=== PATIENT | male | born 1980 | race Caucasian/White ===

== ENCOUNTER 2020-12-01 21:25 | Emergency (ER) | payer SELFPAY ==
[~2020-12-01] VITALS: Ht 190.5 cm; Wt 108.9 kg
[2020-12-01] MEDS ORDERED: AMOXICILLIN875 MG PO (22:33)
== END 2020-12-01 22:46 | disposition home or self-care (01) ==
LOC: ED 21:25
DX: K08.89 Other specified disorders of teeth and supporting structures (principal)

== ENCOUNTER 2020-12-29 13:17 | Emergency (ER) | payer MEDICAID ==
[~2020-12-29] VITALS: Ht 190.5 cm; Wt 112.0 kg
[~2020-12-29 13:17] MED LIST: AMOXICILLIN875 MG PO
[2020-12-29] MEDS ORDERED: DEPAKOTE500 M1 PO (14:00)
[2020-12-29 14:21] LABS: BASO # 0.1 10*3/uL (0.0-0.1); BASO % 1.1 % (0.0-1.0); EOS # 0.3 10*3/uL (0.0-0.4); LYMPH # 2.4 10*3/uL (1.3-4.4); MEAN CELL VOLUME 86.8 fl (80.0-94.0); MEAN CORPUSCULAR HGB 29.2 pg (27.0-31.0); MEAN CORPUSCULAR HGB CONC 33.7 g/dl (33.0-37.0); MEAN PLATELET VOLUME 9.8 fl (9.6-12.3); MONO # 0.7 10*3/uL (0.1-1.0); MONO % 10.7 % (3.0-9.0); NEUT # 3.1 10*3/uL (2.3-7.9); PLATELET COUNT AUTOMATED 277 10*3/uL (130-400); RED CELL DISTRI WIDTH 12.1 % (0-14.5); WHITE BLOOD COUNT 6.6 10*3/uL (4.8-10.8)
[2020-12-29 14:38] LABS: ALBUMIN 3.9 gm/dl (3.1-4.5); ALKALINE PHOSPHATASE 87 U/L (45-117); BUN 7 mg/dl (7-24); CHLORIDE 110 mmol/L (98-107); CREATININE 1.02 mg/dL (0.70-1.30); SGOT/AST 20 IU/L (3-35); SGPT/ALT 55 U/L (12-78); SODIUM 140 mmol/L (136-145); TOTAL PROTEIN 7.9 gm/dL (6.4-8.2)
== END 2020-12-29 15:01 | disposition home or self-care (01) ==
LOC: ED 13:17
PROVIDERS: Emergency Medicine
DX: G40.909 Epilepsy, unspecified, not intractable, without status epilepticus (principal); Z88.8 Allergy status to other drugs, medicaments and biological substances

== ENCOUNTER → 2021-05-01 | Outpatient (CLI) | payer OTHER ==
[~2021-05-01] MED LIST changes: +DEPAKOTE500 M1 PO
[2021-05-01 15:19] LABS: BASO # 0.1 10*3/uL (0.0-0.1); BASO % 0.9 % (0.0-1.0); EOS # 0.3 10*3/uL (0.0-0.4); EOS % 4.4 % (1.0-4.0); HEMATOCRIT 47.2 % (42.0-52.0); LYMPH # 2.7 10*3/uL (1.3-4.4); MEAN CELL VOLUME 85.4 fl (80.0-94.0); MEAN CORPUSCULAR HGB 28.6 pg (27.0-31.0); MEAN CORPUSCULAR HGB CONC 33.5 g/dl (33.0-37.0); MEAN PLATELET VOLUME 9.7 fl (9.6-12.3); MONO # 0.7 10*3/uL (0.1-1.0); MONO % 10.2 % (3.0-9.0); NEUT % 44.2 % (47.0-73.0); PLATELET COUNT AUTOMATED 296 10*3/uL (130-400); RED BLOOD COUNT 5.53 10*6/uL (4.50-5.90); RED CELL DISTRI WIDTH 12.7 % (0-14.5); WHITE BLOOD COUNT 6.8 10*3/uL (4.8-10.8)
[2021-05-01 16:00] LABS: CHLORIDE 108 mmol/L (98-107); CREATININE 0.94 mg/dL (0.70-1.30); POTASSIUM 4.1 mmol/L (3.5-5.1); SODIUM 138 mmol/L (136-145)
[2021-05-01 16:11] LABS: ALKALINE PHOSPHATASE 82 U/L (45-117); BUN 11 mg/dl (7-24); CHOLESTEROL 189 mg/dL (<200); FREE T4 0.93 ng/dl (0.76-1.46); LDL CHOLESTEROL 117 mg/dL (9-159); SGOT/AST 23 IU/L (3-35); SGPT/ALT 60 U/L (12-78); TOTAL PROTEIN 8.3 gm/dL (6.4-8.2); TRIGLYCERIDES 192 mg/dl (<150)
[2021-05-01 20:48] LABS: VITAMIN D, 25-HYDROXY 13.1 ng/mL (30-100)
== END | disposition home or self-care (01) ==
LOC: LAB 14:36
PROVIDERS: ATTEND Internal Medicine
DX: I10 Essential (primary) hypertension (principal); E55.9 Vitamin D deficiency, unspecified; Z13.1 Encounter for screening for diabetes mellitus; Z13.220 Encounter for screening for lipoid disorders; Z00.00 Encounter for general adult medical examination without abnormal findings

== ENCOUNTER 2021-05-07 17:26 | Emergency (ER) | payer OTHER ==
[~2021-05-07] VITALS: Ht 190.5 cm; Wt 110.7 kg
[2021-05-07] MEDS ORDERED: MEDROL DOSEPAK4 MG PO (18:40)
[2021-05-07] MEDS ORDERED: ZYRTEC10 M2 PO (18:40)
[2021-05-07] MEDS ORDERED: CYCLOBENZAPRINE5 M3 PO (18:40)
== END 2021-05-07 18:58 | disposition home or self-care (01) ==
LOC: ED 17:26
DX: M54.9 Dorsalgia, unspecified (principal); H93.8X3 Other specified disorders of ear, bilateral; Z88.8 Allergy status to other drugs, medicaments and biological substances; F17.200 Nicotine dependence, unspecified, uncomplicated

== ENCOUNTER 2021-07-05 17:44 | Emergency (ER) | payer OTHER ==
[~2021-07-05] VITALS: Ht 190.5 cm; Wt 111.1 kg
[~2021-07-05 17:44] MED LIST changes: +CYCLOBENZAPRINE5 M3 PO; +MEDROL DOSEPAK4 MG PO; +ZYRTEC10 M2 PO
[2021-07-05] MEDS ORDERED: CEFUROXIME AXE500 MG PO (18:02)
[2021-07-05] MEDS ORDERED: DOXYCYCLINE HY100 M3 PO (18:02)
== END 2021-07-05 18:12 | disposition home or self-care (01) ==
LOC: ED 17:44
DX: L03.113 Cellulitis of right upper limb (principal); Z88.1 Allergy status to other antibiotic agents; Z88.8 Allergy status to other drugs, medicaments and biological substances; F17.200 Nicotine dependence, unspecified, uncomplicated

== ENCOUNTER → 2021-10-11 | Outpatient (CLI) | payer OTHER ==
[~2021-10-11] MED LIST changes: +CEFUROXIME AXE500 MG PO; +DOXYCYCLINE HY100 M3 PO
[2021-10-12 05:06] LABS: TOTAL PROTEIN, SERUM 7.7 g/dL (6.0-8.5)
[2021-10-14 15:06] LABS: ALBUMIN 3.9 g/dL (2.9-4.4); ALPHA-1-GLOBULIN 0.2 g/dL (0.0-0.4); ALPHA-2-GLOBULIN 0.9 g/dL (0.4-1.0); BETA GLOBULIN 1.2 g/dL (0.7-1.3); GAMMA GLOBULIN 1.4 g/dL (0.4-1.8); GLOBULIN, TOTAL 3.8 g/dL (2.2-3.9); M-SPIKE Not Observed g/dL (Not Observed)
[2021-10-15 13:06] LABS: ALBUMIN, URINE 34.5 % (.); ALPHA-1-GLOBULIN, URINE 3.9 % (.); ALPHA-2-GLOBULIN, URINE 23.2 % (.); BETA GLOBULIN, URINE 27.9 % (.); GAMMA GLOBULIN, URINE 10.5 % (.); M-SPIKE, % Not Observed % (Not Observed); PROTEIN,TOTAL - URINE RANDOM 18.7 mg/dL (Not Estab.)
== END | disposition home or self-care (01) ==
LOC: LAB 13:46
PROVIDERS: ATTEND Internal Medicine
DX: R79.82 Elevated C-reactive protein (CRP) (principal)

== ENCOUNTER 2021-10-30 00:05 | Emergency (ER) | payer OTHER ==
[~2021-10-30] VITALS: Ht 182.8 cm; Wt 99.8 kg
[2021-10-30 00:27] LABS: BASO # 0.1 10*3/uL (0.0-0.1); BASO % 0.8 % (0.0-1.0); EOS # 0.4 10*3/uL (0.0-0.4); EOS % 3.2 % (1.0-4.0); HEMATOCRIT 47.3 % (42.0-52.0); LYMPH % 43.7 % (27.0-41.0); MEAN CELL VOLUME 86.3 fl (80.0-94.0); MEAN CORPUSCULAR HGB 28.6 pg (27.0-31.0); MEAN CORPUSCULAR HGB CONC 33.2 g/dl (33.0-37.0); MEAN PLATELET VOLUME 9.8 fl (9.6-12.3); MONO # 1.1 10*3/uL (0.1-1.0); MONO % 9.4 % (3.0-9.0); NEUT # 4.8 10*3/uL (2.3-7.9); NEUT % 42.5 % (47.0-73.0); PLATELET COUNT AUTOMATED 325 10*3/uL (130-400); RED BLOOD COUNT 5.48 10*6/uL (4.50-5.90); RED CELL DISTRI WIDTH 12.3 % (0-14.5); WHITE BLOOD COUNT 11.4 10*3/uL (4.8-10.8)
[2021-10-30 00:41] LABS: ALKALINE PHOSPHATASE 82 U/L (45-117); BUN 10 mg/dl (7-24); CHLORIDE 109 mmol/L (98-107); CREATININE 1.34 mg/dL (0.70-1.30); POTASSIUM 3.9 mmol/L (3.5-5.1); SGOT/AST 22 IU/L (3-35); SGPT/ALT 45 U/L (12-78); SODIUM 140 mmol/L (136-145); TOTAL PROTEIN 7.7 gm/dL (6.4-8.2)
== END 2021-10-30 02:45 | disposition home or self-care (01) ==
LOC: ED 00:05
PROVIDERS: Emergency Medicine
DX: S00.512A Abrasion of oral cavity, initial encounter (principal); G40.909 Epilepsy, unspecified, not intractable, without status epilepticus; M62.838 Other muscle spasm; Z79.899 Other long term (current) drug therapy; Z88.1 Allergy status to other antibiotic agents; W01.198A Fall on same level from slipping, tripping and stumbling with subsequent striking against other object, initial encounter; Y93.01 Activity, walking, marching and hiking; Y92.89 Other specified places as the place of occurrence of the external cause; Y99.9 Unspecified external cause status

== ENCOUNTER → 2021-11-21 | Outpatient (CLI) | payer OTHER | END | disposition home or self-care (01) | LOC: LAB 14:57 | PROVIDERS: ATTEND Internal Medicine | DX: Z13.220 Encounter for screening for lipoid disorders (principal); Z13.1 Encounter for screening for diabetes mellitus; Z13.21 Encounter for screening for nutritional disorder; Z13.228 Encounter for screening for other metabolic disorders; Z13.29 Encounter for screening for other suspected endocrine disorder; Z13.89 Encounter for screening for other disorder; Z13.9 Encounter for screening, unspecified; R79.89 Other specified abnormal findings of blood chemistry ==

== ENCOUNTER 2022-01-31 12:36 | Emergency (ER) | payer OTHER ==
[~2022-01-31] VITALS: Ht 190.5 cm; Wt 102.1 kg
[2022-01-31] MEDS ORDERED: CLEOCIN HCL300 MG PO (13:10)
== END 2022-01-31 13:24 | disposition home or self-care (01) ==
LOC: ED 12:36
DX: J32.9 Chronic sinusitis, unspecified (principal); L73.9 Follicular disorder, unspecified; F17.200 Nicotine dependence, unspecified, uncomplicated; Z88.1 Allergy status to other antibiotic agents; Z88.8 Allergy status to other drugs, medicaments and biological substances

== ENCOUNTER 2022-02-19 07:38 | Emergency (ER) | payer OTHER ==
[~2022-02-19] VITALS: Ht 190.5 cm; Wt 108.0 kg
[~2022-02-19 07:38] MED LIST changes: +CLEOCIN HCL300 MG PO
[2022-02-19 08:26] LABS: HEMATOCRIT 46.8 % (42.0-52.0); MEAN CELL VOLUME 84.6 fl (80.0-94.0); MEAN CORPUSCULAR HGB 29.3 pg (27.0-31.0); MEAN CORPUSCULAR HGB CONC 34.6 g/dl (33.0-37.0); MEAN PLATELET VOLUME 9.7 fl (9.6-12.3); PLATELET COUNT AUTOMATED 297 10*3/uL (130-400); RED BLOOD COUNT 5.53 10*6/uL (4.50-5.90); RED CELL DISTRI WIDTH 12.6 % (0-14.5); WHITE BLOOD COUNT 10.2 10*3/uL (4.8-10.8)
[2022-02-19 08:28] LABS: MANUAL DIFF REFLEX YES
[2022-02-19 08:41] LABS: ALKALINE PHOSPHATASE 78 U/L (46-116); BUN 10 mg/dl (9-23); CHLORIDE 105 mmol/L (98-107); CREATININE 0.98 mg/dL (0.70-1.30); LIPASE 41 U/L (12-53); POTASSIUM 4.1 mmol/L (3.4-5.1); SGPT/ALT 31 U/L (10-49); SODIUM 139 mmol/L (136-145); TOTAL PROTEIN 7.5 gm/dL (6.0-8.0)
[2022-02-19 08:47] LABS: ATYPICAL LYMPHS 1 % (0-0); PLATELET SUFFICIENCY NORMAL (NORMAL); POLYCHROMASIA SLIGHT; TOTAL CELLS COUNTED 100 #CELLS
[2022-02-19] MEDS ORDERED: CYCLOBENZAPRINE10 MG PO (10:26)
== END 2022-02-19 10:35 | disposition home or self-care (01) ==
LOC: ED 07:38
PROVIDERS: Emergency Medicine
DX: M54.50 Low back pain, unspecified (principal); R10.31 Right lower quadrant pain; R11.0 Nausea; R00.2 Palpitations; Z88.1 Allergy status to other antibiotic agents; Z88.8 Allergy status to other drugs, medicaments and biological substances; F17.200 Nicotine dependence, unspecified, uncomplicated

== ENCOUNTER 2022-03-18 15:59 | Emergency (ER) | payer OTHER ==
[~2022-03-18] VITALS: Ht 190.5 cm; Wt 108.0 kg
[~2022-03-18 15:59] MED LIST changes: +CYCLOBENZAPRINE10 MG PO
[2022-03-18 17:19] LABS: BILIRUBIN Negative (Negative); BLOOD Negative (Negative); CLARITY Clear (Clear); COLOR Yellow (Yellow); GLUCOSE Negative (Negative); KETONE Trace (Negative); LEUKO ESTERASE Negative (Negative); NITRITE Negative (Negative); PH 5.5 (4.5-8.0); SPECIFIC GRAVITY 1.025 (1.001-1.030)
[2022-03-18 17:32] LABS: MUCOUS 1+; RBC 0-2 rbc/hpf (0-2)
[2022-03-18 17:42] LABS: URINE AMPHETAMINES Negative (1000ng/ml); URINE BARBITURATES Negative (200ng/ml); URINE BENZODIAZEPINES Negative (200ng/ml); URINE CANNABINOIDS (THC) Negative (50ng/ml); URINE COCAINE Negative (300ng/ml); URINE METHADONE Negative (300ng/ml); URINE OPIATES Negative (300ng/ml); URINE PHENCYCLIDINE Negative (25ng/ml)
[2022-03-18 17:57] LABS: FINE GRANULAR CAST 0-2
[2022-03-18] MEDS ORDERED: Motrin,Rufen800 MG PO (18:01)
[2022-03-18] MEDS ORDERED: MEDROL DOSEPAK4 MG PO (18:01)
== END 2022-03-18 18:29 | disposition home or self-care (01) ==
LOC: ED 15:59
PROVIDERS: Nurse Practitioner
DX: S39.012A Strain of muscle, fascia and tendon of lower back, initial encounter (principal); Z88.1 Allergy status to other antibiotic agents; F10.90 Alcohol use, unspecified, uncomplicated; Z88.8 Allergy status to other drugs, medicaments and biological substances; Z79.899 Other long term (current) drug therapy; X58.XXXA Exposure to other specified factors, initial encounter; Y93.89 Activity, other specified; Y92.89 Other specified places as the place of occurrence of the external cause; Y99.8 Other external cause status

== ENCOUNTER 2022-04-19 14:54 | Emergency (ER) | payer OTHER ==
[~2022-04-19] VITALS: Ht 190.5 cm; Wt 107.5 kg
[~2022-04-19 14:54] MED LIST changes: +Motrin,Rufen800 MG PO
[2022-04-19 15:33] LABS: BASO # 0.1 10*3/uL (0.0-0.1); BASO % 0.9 % (0.0-1.0); EOS # 0.3 10*3/uL (0.0-0.4); EOS % 4.6 % (1.0-4.0); HEMATOCRIT 47.5 % (42.0-52.0); LYMPH # 3.2 10*3/uL (1.3-4.4); LYMPH % 46.2 % (27.0-41.0); MEAN CELL VOLUME 83.8 fl (80.0-94.0); MEAN CORPUSCULAR HGB 29.6 pg (27.0-31.0); MEAN CORPUSCULAR HGB CONC 35.4 g/dl (33.0-37.0); MEAN PLATELET VOLUME 10.3 fl (9.6-12.3); MONO # 0.7 10*3/uL (0.1-1.0); MONO % 10.7 % (3.0-9.0); NEUT # 2.6 10*3/uL (2.3-7.9); NEUT % 37.3 % (47.0-73.0); PLATELET COUNT AUTOMATED 272 10*3/uL (130-400); RED BLOOD COUNT 5.67 10*6/uL (4.50-5.90); RED CELL DISTRI WIDTH 12.1 % (0-14.5); WHITE BLOOD COUNT 6.9 10*3/uL (4.8-10.8)
[2022-04-19 15:51] LABS: ALKALINE PHOSPHATASE 82 U/L (46-116); BUN 13 mg/dl (9-23); CHLORIDE 107 mmol/L (98-107); POTASSIUM 4.1 mmol/L (3.4-5.1); SGPT/ALT 32 U/L (10-49); TOTAL PROTEIN 7.8 gm/dL (6.0-8.0)
[2022-04-19 16:13] LABS: BILIRUBIN Negative (Negative); BLOOD Negative (Negative); CLARITY Clear (Clear); COLOR Yellow (Yellow); GLUCOSE Negative (Negative); KETONE Trace (Negative); LEUKO ESTERASE Trace (Negative); NITRITE Negative (Negative); SPECIFIC GRAVITY 1.025 (1.001-1.030)
[2022-04-19 16:57] LABS: RBC 0-2 rbc/hpf (0-2)
== END 2022-04-19 17:05 | disposition home or self-care (01) ==
LOC: ED 14:54
PROVIDERS: Nurse Practitioner
DX: M54.50 Low back pain, unspecified (principal); R10.11 Right upper quadrant pain

== ENCOUNTER 2022-04-30 19:11 | Emergency (ER) | payer OTHER ==
[~2022-04-30] VITALS: Ht 190.5 cm; Wt 109.3 kg
[~2022-04-30 19:11] MED LIST changes: -FLUOXETINE HCL40 MG PO; -PREDNISONE5 MG PO
[2022-04-30] MEDS ORDERED: PREDNISONE5 MG PO (19:45)
[2022-04-30] MEDS ORDERED: FLUOXETINE HCL40 MG PO (19:46)
[2022-04-30 20:20] LABS: ALKALINE PHOSPHATASE 81 U/L (46-116); BUN 11 mg/dl (9-23); CHLORIDE 103 mmol/L (98-107); POTASSIUM 4.2 mmol/L (3.4-5.1); SGPT/ALT 35 U/L (10-49); TOTAL PROTEIN 7.8 gm/dL (6.0-8.0)
== END 2022-04-30 21:52 | disposition home or self-care (01) ==
LOC: ED 19:11
PROVIDERS: Emergency Medicine
DX: M54.2 Cervicalgia (principal); R10.9 Unspecified abdominal pain; Z88.1 Allergy status to other antibiotic agents; Z88.8 Allergy status to other drugs, medicaments and biological substances; Z79.899 Other long term (current) drug therapy; F17.200 Nicotine dependence, unspecified, uncomplicated

== ENCOUNTER → 2022-04-30 | Outpatient (CLI) | payer OTHER ==
[~2022-04-30] MED LIST changes: +FLUOXETINE HCL40 MG PO; +PREDNISONE5 MG PO
[2022-04-30 19:04] LABS: BASO # 0.1 10*3/uL (0.0-0.1); BASO % 0.9 % (0.0-1.0); EOS # 0.3 10*3/uL (0.0-0.4); EOS % 3.3 % (1.0-4.0); HEMATOCRIT 47.1 % (42.0-52.0); LYMPH # 3.7 10*3/uL (1.3-4.4); LYMPH % 41.3 % (27.0-41.0); MEAN CORPUSCULAR HGB 29.1 pg (27.0-31.0); MEAN CORPUSCULAR HGB CONC 34.2 g/dl (33.0-37.0); MEAN PLATELET VOLUME 9.6 fl (9.6-12.3); MONO # 0.9 10*3/uL (0.1-1.0); MONO % 9.6 % (3.0-9.0); NEUT % 44.7 % (47.0-73.0); PLATELET COUNT AUTOMATED 320 10*3/uL (130-400); RED BLOOD COUNT 5.54 10*6/uL (4.50-5.90); RED CELL DISTRI WIDTH 12.3 % (0-14.5); WHITE BLOOD COUNT 8.9 10*3/uL (4.8-10.8)
[2022-04-30 19:26] LABS: VITAMIN D, 25-HYDROXY 19.1 ng/mL (30-100)
[2022-04-30 19:55] LABS: ALKALINE PHOSPHATASE 78 U/L (46-116); BUN 10 mg/dl (9-23); CHLORIDE 105 mmol/L (98-107); CHOLESTEROL 228 mg/dL (<200); FREE T4 0.99 ng/dl (0.89-1.76); LDL CHOLESTEROL 138 mg/dL (9-159); SGPT/ALT 29 U/L (10-49); THYROID STIM HORMONE (HS) 2.192 uIU/ml (0.550-4.780); TRIGLYCERIDES 284 mg/dl (<150)
== END | disposition home or self-care (01) ==
LOC: LAB 18:42
PROVIDERS: ATTEND Internal Medicine
DX: Z13.820 Encounter for screening for osteoporosis (principal); Z13.89 Encounter for screening for other disorder; Z13.0 Encounter for screening for diseases of the blood and blood-forming organs and certain disorders involving the immune mechanism; Z13.1 Encounter for screening for diabetes mellitus; Z13.6 Encounter for screening for cardiovascular disorders; I10 Essential (primary) hypertension; E55.9 Vitamin D deficiency, unspecified

== ENCOUNTER 2022-05-12 18:03 | Emergency (ER) | payer OTHER ==
[~2022-05-12] VITALS: Wt 108.9 kg
[~2022-05-12 18:03] MED LIST changes: +FLUOXETINE HCL40 MG PO; +PREDNISONE5 MG PO
[2022-05-12 21:08] LABS: BASO # 0.1 10*3/uL (0.0-0.1); BASO % 0.9 % (0.0-1.0); EOS # 0.4 10*3/uL (0.0-0.4); HEMATOCRIT 48.7 % (42.0-52.0); LYMPH # 2.6 10*3/uL (1.3-4.4); LYMPH % 29.2 % (27.0-41.0); MEAN CELL VOLUME 84.4 fl (80.0-94.0); MEAN CORPUSCULAR HGB 28.4 pg (27.0-31.0); MEAN CORPUSCULAR HGB CONC 33.7 g/dl (33.0-37.0); MEAN PLATELET VOLUME 9.8 fl (9.6-12.3); MONO # 0.6 10*3/uL (0.1-1.0); MONO % 7.2 % (3.0-9.0); NEUT # 5.2 10*3/uL (2.3-7.9); NEUT % 58.5 % (47.0-73.0); PLATELET COUNT AUTOMATED 298 10*3/uL (130-400); RED BLOOD COUNT 5.77 10*6/uL (4.50-5.90); RED CELL DISTRI WIDTH 12.5 % (0-14.5); WHITE BLOOD COUNT 8.9 10*3/uL (4.8-10.8)
[2022-05-12 21:23] LABS: ALKALINE PHOSPHATASE 83 U/L (46-116); BUN 10 mg/dl (9-23); CHLORIDE 106 mmol/L (98-107); LIPASE 34 U/L (12-53); SGPT/ALT 29 U/L (10-49); TOTAL PROTEIN 7.9 gm/dL (6.0-8.0)
[2022-05-12 21:51] LABS: BILIRUBIN Negative (Negative); BLOOD Negative (Negative); CLARITY Clear (Clear); COLOR Dark Yellow (Yellow); GLUCOSE Negative (Negative); KETONE Trace (Negative); LEUKO ESTERASE Trace (Negative); NITRITE Negative (Negative); PH 6.5 (4.5-8.0); SPECIFIC GRAVITY 1.025 (1.001-1.030)
[2022-05-12 21:57] LABS: URINE AMPHETAMINES Negative (1000ng/ml); URINE BARBITURATES Negative (200ng/ml); URINE BENZODIAZEPINES Negative (200ng/ml); URINE CANNABINOIDS (THC) Negative (50ng/ml); URINE COCAINE Negative (300ng/ml); URINE METHADONE Negative (300ng/ml); URINE OPIATES Negative (300ng/ml); URINE PHENCYCLIDINE Negative (25ng/ml)
[2022-05-12 22:18] LABS: BACTERIA 1+; FINE GRANULAR CAST 0-2; MUCOUS 1+; RBC 0-2 rbc/hpf (0-2)
[2022-05-12] MEDS ORDERED: SEPTDS PO (22:27)
== END 2022-05-12 23:18 | disposition home or self-care (01) ==
LOC: ED 18:03
PROVIDERS: Physician Assistant
DX: N39.0 Urinary tract infection, site not specified (principal); I10 Essential (primary) hypertension; Z88.1 Allergy status to other antibiotic agents; Z88.8 Allergy status to other drugs, medicaments and biological substances; Z87.891 Personal history of nicotine dependence; Z79.899 Other long term (current) drug therapy

== ENCOUNTER 2022-05-24 08:31 | Emergency (ER) | payer OTHER ==
[~2022-05-24] VITALS: Ht 195.5 cm; Wt 108.9 kg
[~2022-05-24 08:31] MED LIST changes: +SEPTDS PO
[2022-05-24 09:39] LABS: BASO # 0.1 10*3/uL (0.0-0.1); EOS # 0.4 10*3/uL (0.0-0.4); EOS % 4.9 % (1.0-4.0); HEMATOCRIT 48.7 % (42.0-52.0); LYMPH % 38.6 % (27.0-41.0); MEAN CELL VOLUME 83.1 fl (80.0-94.0); MEAN CORPUSCULAR HGB CONC 34.9 g/dl (33.0-37.0); MEAN PLATELET VOLUME 9.4 fl (9.6-12.3); MONO # 0.8 10*3/uL (0.1-1.0); MONO % 9.7 % (3.0-9.0); NEUT # 3.5 10*3/uL (2.3-7.9); NEUT % 45.7 % (47.0-73.0); PLATELET COUNT AUTOMATED 332 10*3/uL (130-400); RED BLOOD COUNT 5.86 10*6/uL (4.50-5.90); RED CELL DISTRI WIDTH 12.3 % (0-14.5); WHITE BLOOD COUNT 7.7 10*3/uL (4.8-10.8)
[2022-05-24 10:00] LABS: ALKALINE PHOSPHATASE 77 U/L (46-116); BUN 12 mg/dl (9-23); CHLORIDE 105 mmol/L (98-107); LIPASE 47 U/L (12-53); POTASSIUM 4.1 mmol/L (3.4-5.1); SGPT/ALT 39 U/L (10-49); TOTAL PROTEIN 8.1 gm/dL (6.0-8.0)
[2022-05-24] MEDS ORDERED: HYDROCODONE-AC1 EAC1 PO (10:57)
== END 2022-05-24 11:16 | disposition home or self-care (01) ==
LOC: ED 08:31
PROVIDERS: Family Medicine
DX: Q62.8 Other congenital malformations of ureter (principal); I10 Essential (primary) hypertension; Z88.1 Allergy status to other antibiotic agents; Z88.8 Allergy status to other drugs, medicaments and biological substances; Z87.891 Personal history of nicotine dependence

== ENCOUNTER 2022-06-13 17:19 | Emergency (ER) | payer OTHER ==
[~2022-06-13] VITALS: Ht 190.5 cm; Wt 108.0 kg
[~2022-06-13 17:19] MED LIST changes: +HYDROCODONE-AC1 EAC1 PO
[2022-06-13] MEDS ORDERED: LIPITOR20 MG PO (19:20)
[2022-06-13] MEDS ORDERED: HYDROXYZINE PAM25 M1 PO (19:21)
[2022-06-13] MEDS ORDERED: NORVASC5 MG PO (19:21)
[2022-06-13] MEDS ORDERED: IBU800 M2 PO (19:40)
[2022-06-13] MEDS ORDERED: CYCLOBENZAPRINE10 MG PO (19:40)
== END 2022-06-13 19:45 | disposition home or self-care (01) ==
LOC: ED 17:19
DX: G89.29 Other chronic pain (principal); M54.50 Low back pain, unspecified; Z79.899 Other long term (current) drug therapy; Z88.1 Allergy status to other antibiotic agents; Z88.8 Allergy status to other drugs, medicaments and biological substances

== ENCOUNTER 2022-06-14 19:46 | Emergency (ER) | payer OTHER ==
[~2022-06-14] VITALS: Ht 190.5 cm; Wt 108.0 kg
[~2022-06-14 19:46] MED LIST changes: +HYDROXYZINE PAM25 M1 PO; +IBU800 M2 PO; +LIPITOR20 MG PO; +NORVASC5 MG PO
== END 2022-06-14 21:26 | disposition home or self-care (01) ==
LOC: ED 19:46
DX: M54.50 Low back pain, unspecified (principal); R07.81 Pleurodynia; M54.6 Pain in thoracic spine; I10 Essential (primary) hypertension; Z88.1 Allergy status to other antibiotic agents; Z88.8 Allergy status to other drugs, medicaments and biological substances

== ENCOUNTER 2022-06-22 05:15 | Emergency (ER) | payer OTHER ==
[2022-06-22] MEDS ORDERED: SEPTDS PO (06:14)
== END 2022-06-22 06:20 | disposition home or self-care (01) ==
LOC: ED 05:15
DX: L02.212 Cutaneous abscess of back [any part, except buttock and flank] (principal); Z88.1 Allergy status to other antibiotic agents; Z88.8 Allergy status to other drugs, medicaments and biological substances; L72.3 Sebaceous cyst; I10 Essential (primary) hypertension

== ENCOUNTER → 2022-07-02 | Outpatient (CLI) | payer OTHER ==
[2022-07-03 02:07] LABS: TOTAL PROTEIN, SERUM 7.3 g/dL (6.0-8.5)
[2022-07-03 14:08] LABS: A/G RATIO 1.3 (0.7-1.7); ALBUMIN 4.1 g/dL (2.9-4.4); ALPHA-1-GLOBULIN 0.2 g/dL (0.0-0.4); ALPHA-2-GLOBULIN 0.7 g/dL (0.4-1.0); BETA GLOBULIN 1.2 g/dL (0.7-1.3); GAMMA GLOBULIN 1.1 g/dL (0.4-1.8); GLOBULIN, TOTAL 3.2 g/dL (2.2-3.9); M-SPIKE Not Observed g/dL (Not Observed)
[2022-07-04 16:08] LABS: ALBUMIN, URINE 30.3 % (.); ALPHA-1-GLOBULIN, URINE 3.6 % (.); ALPHA-2-GLOBULIN, URINE 20.4 % (.); BETA GLOBULIN, URINE 30.3 % (.); GAMMA GLOBULIN, URINE 15.4 % (.); M-SPIKE, % Not Observed % (Not Observed); PROTEIN,TOTAL - URINE RANDOM 12.4 mg/dL (Not Estab.)
== END | disposition home or self-care (01) ==
LOC: LAB 09:15
PROVIDERS: Internal Medicine; ATTEND Internal Medicine
DX: Z13.0 Encounter for screening for diseases of the blood and blood-forming organs and certain disorders involving the immune mechanism (principal); Z13.21 Encounter for screening for nutritional disorder; Z13.220 Encounter for screening for lipoid disorders; Z13.228 Encounter for screening for other metabolic disorders; Z13.6 Encounter for screening for cardiovascular disorders; Z13.89 Encounter for screening for other disorder; Z13.9 Encounter for screening, unspecified; E83.52 Hypercalcemia; E88.09 Other disorders of plasma-protein metabolism, not elsewhere classified

== ENCOUNTER 2022-07-06 11:28 | Emergency (ER) | payer OTHER ==
[~2022-07-06] VITALS: Ht 190.5 cm; Wt 108.0 kg
== END 2022-07-06 11:49 | disposition home or self-care (01) ==
LOC: ED 11:28
DX: R07.81 Pleurodynia (principal); I10 Essential (primary) hypertension; Z88.1 Allergy status to other antibiotic agents; Z88.8 Allergy status to other drugs, medicaments and biological substances

== ENCOUNTER 2022-08-29 23:41 | Emergency (ER) | payer OTHER ==
[2022-08-30 00:04] LABS: BASO # 0.1 10*3/uL (0.0-0.1); BASO % 0.7 % (0.0-1.0); EOS # 0.3 10*3/uL (0.0-0.4); EOS % 3.2 % (1.0-4.0); HEMATOCRIT 43.5 % (42.0-52.0); LYMPH # 2.9 10*3/uL (1.3-4.4); LYMPH % 31.2 % (27.0-41.0); MEAN CELL VOLUME 82.7 fl (80.0-94.0); MEAN CORPUSCULAR HGB 28.7 pg (27.0-31.0); MEAN CORPUSCULAR HGB CONC 34.7 g/dl (33.0-37.0); MEAN PLATELET VOLUME 9.3 fl (9.6-12.3); MONO % 10.5 % (3.0-9.0); NEUT # 5.1 10*3/uL (2.3-7.9); NEUT % 54.2 % (47.0-73.0); PLATELET COUNT AUTOMATED 270 10*3/uL (130-400); RED BLOOD COUNT 5.26 10*6/uL (4.50-5.90); WHITE BLOOD COUNT 9.4 10*3/uL (4.8-10.8)
[2022-08-30 00:28] LABS: ALKALINE PHOSPHATASE 81 U/L (46-116); BUN 9 mg/dl (9-23); CHLORIDE 108 mmol/L (98-107); POTASSIUM 3.6 mmol/L (3.4-5.1); SGPT/ALT 42 U/L (10-49); TOTAL PROTEIN 7.3 gm/dL (6.0-8.0)
== END 2022-08-30 02:57 | disposition home or self-care (01) ==
LOC: ED 23:41
PROVIDERS: Internal Medicine
DX: R07.89 Other chest pain (principal); I10 Essential (primary) hypertension; Z88.1 Allergy status to other antibiotic agents; Z88.8 Allergy status to other drugs, medicaments and biological substances

== ENCOUNTER 2022-09-10 15:28 | Emergency (ER) | payer OTHER ==
[~2022-09-10] VITALS: Ht 190.5 cm; Wt 108.4 kg
[2022-09-10 19:47] LABS: BILIRUBIN Negative (Negative); BLOOD Negative (Negative); CLARITY Clear (Clear); COLOR Yellow (Yellow); GLUCOSE Negative (Negative); KETONE Trace (Negative); LEUKO ESTERASE Negative (Negative); NITRITE Negative (Negative); PH 5.5 (4.5-8.0); SPECIFIC GRAVITY 1.025 (1.001-1.030)
[2022-09-10 19:57] LABS: RBC 0-2 rbc/hpf (0-2); WBC 0-2 wbc/hpf (0-5)
[2022-09-10] MEDS ORDERED: PREDNISONE20 M1 PO (20:02)
[2022-09-10] MEDS ORDERED: METHOCARBAMOL500 M1 PO (20:02)
== END 2022-09-10 20:13 | disposition home or self-care (01) ==
LOC: ED 15:28
PROVIDERS: Physician Assistant
DX: M54.50 Low back pain, unspecified (principal); L29.9 Pruritus, unspecified; M54.2 Cervicalgia; Z88.1 Allergy status to other antibiotic agents; Z88.8 Allergy status to other drugs, medicaments and biological substances; Z79.2 Long term (current) use of antibiotics; Z79.899 Other long term (current) drug therapy

== ENCOUNTER 2022-10-22 11:43 | Emergency (ER) | payer OTHER ==
[~2022-10-22] VITALS: Ht 190.5 cm; Wt 104.8 kg
[~2022-10-22 11:43] MED LIST changes: +METHOCARBAMOL500 M1 PO; +PREDNISONE20 M1 PO
[2022-10-22 12:43] LABS: BASO # 0.1 10*3/uL (0.0-0.1); BASO % 1.1 % (0.0-1.0); EOS # 0.3 10*3/uL (0.0-0.4); EOS % 5.4 % (1.0-4.0); HEMATOCRIT 45.8 % (42.0-52.0); LYMPH # 3.2 10*3/uL (1.3-4.4); LYMPH % 50.1 % (27.0-41.0); MEAN CELL VOLUME 85.1 fl (80.0-94.0); MEAN CORPUSCULAR HGB 29.4 pg (27.0-31.0); MEAN CORPUSCULAR HGB CONC 34.5 g/dl (33.0-37.0); MEAN PLATELET VOLUME 9.5 fl (9.6-12.3); MONO # 0.6 10*3/uL (0.1-1.0); MONO % 9.3 % (3.0-9.0); NEUT # 2.1 10*3/uL (2.3-7.9); NEUT % 33.8 % (47.0-73.0); PLATELET COUNT AUTOMATED 297 10*3/uL (130-400); RED BLOOD COUNT 5.38 10*6/uL (4.50-5.90); RED CELL DISTRI WIDTH 12.6 % (0-14.5); WHITE BLOOD COUNT 6.3 10*3/uL (4.8-10.8)
[2022-10-22 13:03] LABS: BILIRUBIN Negative (Negative); BLOOD Negative (Negative); CLARITY Clear (Clear); COLOR Yellow (Yellow); GLUCOSE Negative (Negative); KETONE Trace (Negative); LEUKO ESTERASE Negative (Negative); NITRITE Negative (Negative); PH 6.5 (4.5-8.0)
[2022-10-22 13:08] LABS: ALKALINE PHOSPHATASE 77 U/L (46-116); BUN 7 mg/dl (9-23); CHLORIDE 106 mmol/L (98-107); LIPASE 45 U/L (12-53); SGPT/ALT 32 U/L (10-49); TOTAL PROTEIN 7.6 gm/dL (6.0-8.0)
[2022-10-22 13:11] LABS: EPITHELIAL CELLS 0-2; HYALINE CAST 0-2; MUCOUS 3+; WBC 0-2 wbc/hpf (0-5)
== END 2022-10-22 16:05 | disposition home or self-care (01) ==
LOC: ED 11:43
PROVIDERS: Nurse Practitioner Family
DX: M54.50 Low back pain, unspecified (principal); R10.11 Right upper quadrant pain; R07.89 Other chest pain; I10 Essential (primary) hypertension; Z88.1 Allergy status to other antibiotic agents; Z88.8 Allergy status to other drugs, medicaments and biological substances

== ENCOUNTER → 2022-11-18 | Outpatient (CLI) | payer OTHER | END | disposition home or self-care (01) | LOC: LAB 17:22 | PROVIDERS: ATTEND Internal Medicine Nephrology | DX: F41.9 Anxiety disorder, unspecified (principal) ==

== ENCOUNTER 2022-12-03 15:52 | Emergency (ER) | payer OTHER ==
[~2022-12-03 15:52] MED LIST changes: +MELOXICAM15 MG PO; +VARENICLINE TART1 MG PO
== END 2022-12-03 16:49 | disposition left against medical advice (07) ==
LOC: ED 15:52
DX: M54.50 Low back pain, unspecified (principal); M25.529 Pain in unspecified elbow; Z88.0 Allergy status to penicillin; Z88.8 Allergy status to other drugs, medicaments and biological substances; Z53.21 Procedure and treatment not carried out due to patient leaving prior to being seen by health care provider

== ENCOUNTER 2022-12-31 20:27 | Emergency (ER) | payer OTHER ==
[~2022-12-31] VITALS: Ht 190.5 cm; Wt 105.7 kg
[2022-12-31] MEDS ORDERED: CYCLOBENZAPRINE10 MG PO (20:54)
== END 2022-12-31 21:04 | disposition home or self-care (01) ==
LOC: ED 20:27
DX: M25.522 Pain in left elbow (principal); M54.50 Low back pain, unspecified; R07.81 Pleurodynia; I10 Essential (primary) hypertension; Z88.1 Allergy status to other antibiotic agents; Z88.8 Allergy status to other drugs, medicaments and biological substances; Z98.890 Other specified postprocedural states

== ENCOUNTER 2023-02-15 10:04 | Emergency (ER) | payer OTHER ==
[~2023-02-15] VITALS: Ht 190.5 cm; Wt 109.8 kg
[2023-02-15 10:53] LABS: BASO # 0.1 10*3/uL (0.0-0.1); BASO % 0.7 % (0.0-1.0); EOS # 0.4 10*3/uL (0.0-0.4); EOS % 5.7 % (1.0-4.0); LYMPH # 2.6 10*3/uL (1.3-4.4); LYMPH % 33.8 % (27.0-41.0); MEAN CELL VOLUME 86.2 fl (80.0-94.0); MEAN CORPUSCULAR HGB 28.7 pg (27.0-31.0); MEAN CORPUSCULAR HGB CONC 33.3 g/dl (33.0-37.0); MEAN PLATELET VOLUME 9.7 fl (9.6-12.3); MONO # 0.9 10*3/uL (0.1-1.0); MONO % 11.9 % (3.0-9.0); NEUT # 3.7 10*3/uL (2.3-7.9); NEUT % 47.6 % (47.0-73.0); PLATELET COUNT AUTOMATED 243 10*3/uL (130-400); RED BLOOD COUNT 5.22 10*6/uL (4.50-5.90); RED CELL DISTRI WIDTH 12.6 % (0-14.5); WHITE BLOOD COUNT 7.7 10*3/uL (4.8-10.8)
[2023-02-15] MEDS ORDERED: WELLBUTRIN SR150 MG PO (11:37)
[2023-02-15] MEDS ORDERED: CEPHALEXIN500 M1 PO (11:37)
[2023-02-15] MEDS ORDERED: VISTARIL25 MG PO (11:37)
[2023-02-15] MEDS ORDERED: MELOXICAM15 MG PO (11:37)
[2023-02-15 11:40] LABS: ALKALINE PHOSPHATASE 72 U/L (46-116); BUN 12 mg/dl (9-23); CHLORIDE 108 mmol/L (98-107); POTASSIUM 3.7 mmol/L (3.4-5.1); SGPT/ALT 20 U/L (5-49); TOTAL PROTEIN 7.2 gm/dL (6.0-8.0)
== END 2023-02-15 11:50 | disposition home or self-care (01) ==
LOC: ED 10:04
PROVIDERS: Emergency Medicine
DX: R10.32 Left lower quadrant pain (principal); R07.89 Other chest pain; F41.9 Anxiety disorder, unspecified; L73.9 Follicular disorder, unspecified; R09.1 Pleurisy; I10 Essential (primary) hypertension; Z88.1 Allergy status to other antibiotic agents; Z88.8 Allergy status to other drugs, medicaments and biological substances; F17.210 Nicotine dependence, cigarettes, uncomplicated

== ENCOUNTER 2023-02-17 21:16 | Emergency (ER) | payer OTHER ==
[~2023-02-17] VITALS: Ht 190.5 cm; Wt 132.4 kg
[~2023-02-17 21:16] MED LIST changes: +CEPHALEXIN500 M1 PO; +VISTARIL25 MG PO; +WELLBUTRIN SR150 MG PO
[2023-02-17] MEDS ORDERED: BUSPAR5 MG PO (21:32)
[2023-02-17 21:35] LABS: BASO # 0.1 10*3/uL (0.0-0.1); EOS # 0.3 10*3/uL (0.0-0.4); EOS % 3.5 % (1.0-4.0); HEMATOCRIT 48.2 % (42.0-52.0); LYMPH # 4.8 10*3/uL (1.3-4.4); LYMPH % 50.7 % (27.0-41.0); MEAN CELL VOLUME 88.8 fl (80.0-94.0); MEAN CORPUSCULAR HGB 28.5 pg (27.0-31.0); MEAN CORPUSCULAR HGB CONC 32.2 g/dl (33.0-37.0); MEAN PLATELET VOLUME 9.7 fl (9.6-12.3); MONO # 0.9 10*3/uL (0.1-1.0); NEUT # 3.2 10*3/uL (2.3-7.9); NEUT % 34.5 % (47.0-73.0); PLATELET COUNT AUTOMATED 288 10*3/uL (130-400); RED BLOOD COUNT 5.43 10*6/uL (4.50-5.90); RED CELL DISTRI WIDTH 12.7 % (0-14.5); WHITE BLOOD COUNT 9.4 10*3/uL (4.8-10.8)
[2023-02-17 21:45] LABS: ACT PARTIAL THROMBO TIME 25.4 SECONDS (20.0-32.1)
[2023-02-17 21:55] LABS: ALKALINE PHOSPHATASE 72 U/L (46-116); BUN 12 mg/dl (9-23); CHLORIDE 108 mmol/L (98-107); LIPASE 37 U/L (12-53); POTASSIUM 4.6 mmol/L (3.4-5.1); SGPT/ALT 31 U/L (5-49); TOTAL PROTEIN 7.6 gm/dL (6.0-8.0)
[2023-02-17 21:56] LABS: ETHYL ALCOHOL < 3.0 mg/dl (<3)
[2023-02-18 04:43] LABS: BILIRUBIN Negative (Negative); BLOOD Negative (Negative); CLARITY Clear (Clear); COLOR Yellow (Yellow); GLUCOSE Negative (Negative); KETONE Trace (Negative); LEUKO ESTERASE Negative (Negative); NITRITE Negative (Negative); PH 6.5 (4.5-8.0)
[2023-02-18 04:50] LABS: URINE AMPHETAMINES Negative (1000ng/ml); URINE BARBITURATES Negative (200ng/ml); URINE BENZODIAZEPINES Negative (200ng/ml); URINE CANNABINOIDS (THC) Negative (50ng/ml); URINE COCAINE Negative (300ng/ml); URINE METHADONE Negative (300ng/ml); URINE OPIATES Positive (300ng/ml); URINE PHENCYCLIDINE Negative (25ng/ml)
[2023-02-18 04:54] LABS: WBC 0-2 wbc/hpf (0-5)
== END 2023-02-19 04:07 | disposition left against medical advice (07) ==
LOC: ED 21:16
PROVIDERS: Internal Medicine
DX: R56.9 Unspecified convulsions (principal); I10 Essential (primary) hypertension; R10.2 Pelvic and perineal pain; Z88.1 Allergy status to other antibiotic agents; Z88.8 Allergy status to other drugs, medicaments and biological substances

== ENCOUNTER 2023-03-11 18:10 | Emergency (ER) | payer OTHER ==
[~2023-03-11] VITALS: Wt 108.4 kg
[~2023-03-11 18:10] MED LIST changes: +BUSPAR5 MG PO
[2023-03-13 06:08] LABS: HBSAG Negative (Negative); HEP B CORE AB, IGM Negative (Negative); HEPATITIS C ANTIBODY Non Reactive (Non Reactive)
== END 2023-03-11 20:45 | disposition home or self-care (01) ==
LOC: ED 18:10
PROVIDERS: Nurse Practitioner
DX: N48.89 Other specified disorders of penis (principal); I10 Essential (primary) hypertension; R10.2 Pelvic and perineal pain; Z88.1 Allergy status to other antibiotic agents; Z88.8 Allergy status to other drugs, medicaments and biological substances

== ENCOUNTER → 2023-03-17 | Outpatient (CLI) | payer OTHER ==
[2023-03-17 18:08] LABS: FREE T4 0.93 ng/dl (0.89-1.76)
== END | disposition home or self-care (01) ==
LOC: LAB 17:07
PROVIDERS: ATTEND Internal Medicine Nephrology
DX: R56.9 Unspecified convulsions (principal)

== ENCOUNTER 2023-04-22 15:33 | Emergency (ER) | payer OTHER ==
[~2023-04-22] VITALS: Ht 190.5 cm; Wt 106.1 kg
[2023-04-22] MEDS ORDERED: Dicyclomine Hydrochloride 20 MG/10 ML OSYR PO STA (16:30)
[2023-04-22] MEDS ORDERED: Lidocaine Hydrochloride 15 ML UDC PO STA (16:30)
[2023-04-22] MEDS ORDERED: MG-AL HYDROXIDE/SIMETICONE 30 ML UDC PO STA (16:30)
[2023-04-22 16:43] LABS: BASO # 0.1 10*3/uL (0.0-0.1); BASO % 0.9 % (0.0-1.0); EOS # 0.4 10*3/uL (0.0-0.4); EOS % 5.4 % (1.0-4.0); HEMATOCRIT 51.5 % (42.0-52.0); LYMPH # 3.1 10*3/uL (1.3-4.4); LYMPH % 38.6 % (27.0-41.0); MEAN CELL VOLUME 86.3 fl (80.0-94.0); MEAN CORPUSCULAR HGB 28.5 pg (27.0-31.0); MEAN PLATELET VOLUME 9.5 fl (9.6-12.3); NEUT # 3.5 10*3/uL (2.3-7.9); NEUT % 42.9 % (47.0-73.0); PLATELET COUNT AUTOMATED 298 10*3/uL (130-400); RED BLOOD COUNT 5.97 10*6/uL (4.50-5.90); RED CELL DISTRI WIDTH 12.6 % (0-14.5); WHITE BLOOD COUNT 8.1 10*3/uL (4.8-10.8)
[2023-04-22 17:04] LABS: ALKALINE PHOSPHATASE 85 U/L (46-116); BUN 13 mg/dl (9-23); CHLORIDE 104 mmol/L (98-107); LIPASE 45 U/L (12-53); POTASSIUM 4.7 mmol/L (3.4-5.1); SGPT/ALT 48 U/L (5-49); TOTAL PROTEIN 8.2 gm/dL (6.0-8.0)
[2023-04-22] MEDS ORDERED: MELOXICAM15 MG PO (19:54)
== END 2023-04-22 19:57 | disposition home or self-care (01) ==
LOC: ED 15:33
PROVIDERS: Emergency Medicine
DX: N13.5 Crossing vessel and stricture of ureter without hydronephrosis (principal); R19.7 Diarrhea, unspecified; H57.89 Other specified disorders of eye and adnexa; I10 Essential (primary) hypertension; Z88.1 Allergy status to other antibiotic agents; Z88.8 Allergy status to other drugs, medicaments and biological substances

== ENCOUNTER 2023-04-29 12:24 | Emergency (ER) | payer OTHER ==
[~2023-04-29] VITALS: Wt 106.1 kg
[2023-04-29] MEDS ORDERED: DOCUSATE SODIUM 100 MG/10 ML UDC OT ONE (14:40)
[2023-04-29] MEDS ORDERED: OCUFLOX 5 ML5 ML OT ×2 (16:28)
[2023-04-30] MEDS ORDERED: ZITHROMAX250 MG PO (17:02)
== END 2023-04-29 16:39 | disposition home or self-care (01) ==
LOC: ED 12:24
DX: H61.21 Impacted cerumen, right ear (principal); H60.91 Unspecified otitis externa, right ear; I10 Essential (primary) hypertension; F32.A Depression, unspecified; F41.9 Anxiety disorder, unspecified; Z88.1 Allergy status to other antibiotic agents; Z88.8 Allergy status to other drugs, medicaments and biological substances

== ENCOUNTER 2023-04-30 16:12 | Emergency (ER) | payer OTHER ==
[~2023-04-30] VITALS: Ht 190.5 cm; Wt 106.1 kg
[~2023-04-30 16:12] MED LIST changes: +OCUFLOX 5 ML5 ML OT
[2023-04-30] MEDS ORDERED: ZITHROMAX250 MG PO (17:02)
[2023-04-30] MEDS ORDERED: NEO/POLYMYX B SULF/DEXAMETH 200 DRP BOT OT ONE (17:05)
[2023-04-30] MEDS ORDERED: AZITHROMYCIN 250 MG TAB PO ONE (17:05)
== END 2023-04-30 17:22 | disposition home or self-care (01) ==
LOC: ED 16:12
DX: H60.91 Unspecified otitis externa, right ear (principal); Z88.1 Allergy status to other antibiotic agents; Z88.8 Allergy status to other drugs, medicaments and biological substances; Z79.2 Long term (current) use of antibiotics; Z79.899 Other long term (current) drug therapy

== ENCOUNTER 2023-07-09 15:43 | Emergency (ER) | payer OTHER ==
[~2023-07-09] VITALS: Ht 187.9 cm; Wt 106.6 kg
[~2023-07-09 15:43] MED LIST changes: +ZITHROMAX250 MG PO
[2023-07-09 16:21] LABS: BASO # 0.1 10*3/uL (0.0-0.1); BASO % 0.8 % (0.0-1.0); EOS # 0.4 10*3/uL (0.0-0.4); EOS % 6.6 % (1.0-4.0); HEMATOCRIT 49.1 % (42.0-52.0); LYMPH # 2.5 10*3/uL (1.3-4.4); MEAN CELL VOLUME 84.5 fl (80.0-94.0); MEAN CORPUSCULAR HGB 28.4 pg (27.0-31.0); MEAN CORPUSCULAR HGB CONC 33.6 g/dl (33.0-37.0); MEAN PLATELET VOLUME 9.3 fl (9.6-12.3); MONO # 0.6 10*3/uL (0.1-1.0); MONO % 9.8 % (3.0-9.0); NEUT # 2.4 10*3/uL (2.3-7.9); NEUT % 40.6 % (47.0-73.0); PLATELET COUNT AUTOMATED 270 10*3/uL (130-400); RED BLOOD COUNT 5.81 10*6/uL (4.50-5.90); RED CELL DISTRI WIDTH 12.7 % (0-14.5)
[2023-07-09 16:29] LABS: BILIRUBIN 1+ (Negative); BLOOD Negative (Negative); CLARITY Clear (Clear); COLOR Dark Yellow (Yellow); GLUCOSE Negative (Negative); KETONE Trace (Negative); LEUKO ESTERASE Negative (Negative); NITRITE Negative (Negative); PH 5.5 (4.5-8.0); SPECIFIC GRAVITY 1.025 (1.001-1.030)
[2023-07-09 16:36] LABS: URINE AMPHETAMINES Negative (1000ng/ml); URINE BARBITURATES Negative (200ng/ml); URINE BENZODIAZEPINES Negative (200ng/ml); URINE CANNABINOIDS (THC) Negative (50ng/ml); URINE COCAINE Negative (300ng/ml); URINE METHADONE Negative (300ng/ml); URINE OPIATES Negative (300ng/ml); URINE PHENCYCLIDINE Negative (25ng/ml)
[2023-07-09 16:41] LABS: MUCOUS 3+; RBC 0-2 rbc/hpf (0-2)
[2023-07-09 16:43] LABS: ALKALINE PHOSPHATASE 70 U/L (46-116); BUN 8 mg/dl (9-23); CHLORIDE 108 mmol/L (98-107); LIPASE 45 U/L (12-53); POTASSIUM 4.2 mmol/L (3.4-5.1); SGPT/ALT 44 U/L (5-49); TOTAL PROTEIN 7.8 gm/dL (6.0-8.0)
== END 2023-07-09 17:05 | disposition home or self-care (01) ==
LOC: ED 15:43
PROVIDERS: Physician Assistant Medical
DX: M79.10 Myalgia, unspecified site (principal); L29.9 Pruritus, unspecified; I10 Essential (primary) hypertension; Z88.1 Allergy status to other antibiotic agents; Z88.8 Allergy status to other drugs, medicaments and biological substances

== ENCOUNTER → 2023-07-16 | Outpatient (CLI) | payer OTHER ==
[~2023-07-16] MED LIST changes: +ENALAPRILAT 2.5 MG/2 ML VIAL IV SCH; +FUROSEMIDE 40 MG/4 ML VIAL IV SCH; +FUROSEMIDE 40 MG/4 ML VIAL ONE; +SODIUM CHLORIDE 0.9% 10 ML VIAL ONE; +[UNRECOGNIZED DRUG - OTHER] IV SCH
== END | disposition home or self-care (01) ==
LOC: NM 07-15 11:00
PROVIDERS: ATTEND Urology
DX: N13.0 Hydronephrosis with ureteropelvic junction obstruction (principal); R10.9 Unspecified abdominal pain; I10 Essential (primary) hypertension

== ENCOUNTER 2023-09-13 10:48 | Emergency (ER) | payer OTHER ==
[~2023-09-13] VITALS: Ht 187.9 cm; Wt 104.3 kg
[~2023-09-13 10:48] MED LIST changes: -ENALAPRILAT 2.5 MG/2 ML VIAL IV SCH; -FUROSEMIDE 40 MG/4 ML VIAL IV SCH; -FUROSEMIDE 40 MG/4 ML VIAL ONE; -SODIUM CHLORIDE 0.9% 10 ML VIAL ONE; -[UNRECOGNIZED DRUG - OTHER] IV SCH
[2023-09-13] MEDS ORDERED: Acetaminophen/Hydrocodone 5 MG/325 MG TABLET PO ONE (11:30)
[2023-09-13] MEDS ORDERED: HYDROCORTISONE 0.5% CREAM 30 GM TUBE T ONE (11:40)
[2023-09-13] MEDS ORDERED: methylPREDNISolone sod succ 125 MG VIAL IM ONE (12:10)
[2023-09-13] MEDS ORDERED: PREDNISONE20 M1 PO (12:11)
== END 2023-09-13 12:23 | disposition home or self-care (01) ==
LOC: ED 10:48
DX: S46.812A Strain of other muscles, fascia and tendons at shoulder and upper arm level, left arm, initial encounter (principal); L30.9 Dermatitis, unspecified; I10 Essential (primary) hypertension; F41.9 Anxiety disorder, unspecified; Z88.1 Allergy status to other antibiotic agents; Z88.8 Allergy status to other drugs, medicaments and biological substances; X58.XXXA Exposure to other specified factors, initial encounter; Y93.89 Activity, other specified; Y92.89 Other specified places as the place of occurrence of the external cause; Y99.8 Other external cause status

== ENCOUNTER 2023-09-29 18:47 | Emergency (ER) | payer OTHER ==
[~2023-09-29] VITALS: Ht 190.5 cm; Wt 104.3 kg
[2023-09-29] MEDS ORDERED: Ondansetron Hydrochloride 4 MG TAB SL ONE (19:50)
[2023-09-29] MEDS ORDERED: Ketorolac Tromethamine 60 MG/2 ML VIAL IM ONE (19:50)
[2023-09-29] MEDS ORDERED: Acetaminophen/Hydrocodone 5 MG/325 MG TABLET PO ONE (19:50)
[2023-09-29] MEDS ORDERED: NAPROSYN500 MG PO (19:51)
== END 2023-09-29 20:20 | disposition home or self-care (01) ==
LOC: ED 18:47
DX: M77.12 Lateral epicondylitis, left elbow (principal); Z88.1 Allergy status to other antibiotic agents; Z88.8 Allergy status to other drugs, medicaments and biological substances; Z79.899 Other long term (current) drug therapy; Z79.2 Long term (current) use of antibiotics

== ENCOUNTER 2023-10-08 11:39 | Emergency (ER) | payer OTHER ==
[~2023-10-08] VITALS: Ht 190.5 cm; Wt 104.3 kg
[~2023-10-08 11:39] MED LIST changes: +NAPROSYN500 MG PO
[2023-10-08] MEDS ORDERED: Motrin,Rufen800 MG PO (12:32)
== END 2023-10-08 12:34 | disposition home or self-care (01) ==
LOC: ED 11:39
DX: M25.522 Pain in left elbow (principal); I10 Essential (primary) hypertension; Z88.1 Allergy status to other antibiotic agents; Z88.8 Allergy status to other drugs, medicaments and biological substances

== ENCOUNTER 2023-10-16 07:13 | Emergency (ER) | payer OTHER ==
[~2023-10-16] VITALS: Ht 190.5 cm; Wt 103.4 kg
[2023-10-16] MEDS ORDERED: KETOROLAC10 MG PO (07:50)
[2023-10-16] MEDS ORDERED: Ketorolac Tromethamine 60 MG/2 ML VIAL IM ONE (07:50)
== END 2023-10-16 08:03 | disposition home or self-care (01) ==
LOC: ED 07:13
DX: M77.12 Lateral epicondylitis, left elbow (principal); F32.A Depression, unspecified; F41.9 Anxiety disorder, unspecified; I10 Essential (primary) hypertension; Z88.1 Allergy status to other antibiotic agents; Z88.8 Allergy status to other drugs, medicaments and biological substances

== ENCOUNTER 2023-10-23 20:41 | Emergency (ER) | payer OTHER ==
[~2023-10-23] VITALS: Ht 190.5 cm; Wt 102.1 kg
[~2023-10-23 20:41] MED LIST changes: +KETOROLAC10 MG PO
[2023-10-23 22:51] LABS: BASO # 0.1 10*3/uL (0.0-0.1); BASO % 0.9 % (0.0-1.0); EOS % 0.4 % (1.0-4.0); HEMATOCRIT 45.8 % (42.0-52.0); LYMPH # 1.8 10*3/uL (1.3-4.4); LYMPH % 23.3 % (27.0-41.0); MEAN CELL VOLUME 86.9 fl (80.0-94.0); MEAN CORPUSCULAR HGB 28.8 pg (27.0-31.0); MEAN CORPUSCULAR HGB CONC 33.2 g/dl (33.0-37.0); MEAN PLATELET VOLUME 9.8 fl (9.6-12.3); MONO # 0.4 10*3/uL (0.1-1.0); MONO % 5.4 % (3.0-9.0); NEUT # 5.5 10*3/uL (2.3-7.9); NEUT % 69.7 % (47.0-73.0); PLATELET COUNT AUTOMATED 306 10*3/uL (130-400); RED BLOOD COUNT 5.27 10*6/uL (4.50-5.90); RED CELL DISTRI WIDTH 12.7 % (0-14.5); WHITE BLOOD COUNT 7.8 10*3/uL (4.8-10.8)
[2023-10-23 23:13] LABS: ALKALINE PHOSPHATASE 68 U/L (46-116); BUN 15 mg/dl (9-23); CHLORIDE 108 mmol/L (98-107); POTASSIUM 4.6 mmol/L (3.4-5.1); SGPT/ALT 21 U/L (5-49); TOTAL PROTEIN 7.4 gm/dL (6.0-8.0)
[2023-10-23] MEDS ORDERED: Ketorolac Tromethamine 30 MG/ML VIAL IM ONE (23:45)
== END 2023-10-23 23:39 | disposition home or self-care (01) ==
LOC: ED 20:41
PROVIDERS: Internal Medicine
DX: M25.522 Pain in left elbow (principal); T83.123A Displacement of other urinary stents, initial encounter; I10 Essential (primary) hypertension; Z88.1 Allergy status to other antibiotic agents; Z88.8 Allergy status to other drugs, medicaments and biological substances; Z87.891 Personal history of nicotine dependence; Y73.8 Miscellaneous gastroenterology and urology devices associated with adverse incidents, not elsewhere classified; Y92.009 Unspecified place in unspecified non-institutional (private) residence as the place of occurrence of the external cause

== ENCOUNTER 2023-10-25 13:08 | Emergency (ER) | payer OTHER ==
[~2023-10-25] VITALS: Ht 190.5 cm; Wt 102.1 kg
[2023-10-25] MEDS ORDERED: methylPREDNISolone sod succ 125 MG VIAL IM ONE (13:35)
== END 2023-10-25 13:41 | disposition home or self-care (01) ==
LOC: ED 13:08
DX: M77.12 Lateral epicondylitis, left elbow (principal); I10 Essential (primary) hypertension; F41.9 Anxiety disorder, unspecified; Z88.1 Allergy status to other antibiotic agents; Z88.8 Allergy status to other drugs, medicaments and biological substances

== ENCOUNTER → 2023-11-05 | Outpatient (CLI) | payer OTHER ==
[~2023-11-05] MED LIST changes: +AMLODIPINE BESYL5 MG PO
== END | disposition home or self-care (01) ==
LOC: US 11-03 13:30
PROVIDERS: ATTEND Urology
DX: N13.39 Other hydronephrosis (principal); N20.0 Calculus of kidney; N40.0 Benign prostatic hyperplasia without lower urinary tract symptoms

== ENCOUNTER 2023-11-08 19:06 | Emergency (ER) | payer OTHER ==
[~2023-11-08] VITALS: Ht 177.8 cm; Wt 90.7 kg
[~2023-11-08 19:06] MED LIST changes: -AMLODIPINE BESYL5 MG PO
[2023-11-08 19:30] LABS: BILIRUBIN Negative (Negative); BLOOD Negative (Negative); CLARITY Clear (Clear); COLOR Yellow (Yellow); GLUCOSE Negative (Negative); KETONE Trace (Negative); LEUKO ESTERASE Negative (Negative); NITRITE Negative (Negative); UROBILINOGEN 0.2 E.U./dl (0.0-1.0)
[2023-11-08 19:39] LABS: URINE AMPHETAMINES Negative (1000ng/ml); URINE BARBITURATES Negative (200ng/ml); URINE BENZODIAZEPINES Negative (200ng/ml); URINE CANNABINOIDS (THC) Negative (50ng/ml); URINE COCAINE Negative (300ng/ml); URINE METHADONE Negative (300ng/ml); URINE OPIATES Negative (300ng/ml); URINE PHENCYCLIDINE Negative (25ng/ml)
[2023-11-08 19:40] LABS: BASO # 0.1 10*3/uL (0.0-0.1); BASO % 1.1 % (0.0-1.0); EOS # 0.4 10*3/uL (0.0-0.4); EOS % 5.2 % (1.0-4.0); HEMATOCRIT 46.4 % (42.0-52.0); LYMPH # 2.3 10*3/uL (1.3-4.4); MEAN CELL VOLUME 87.7 fl (80.0-94.0); MEAN CORPUSCULAR HGB 29.1 pg (27.0-31.0); MEAN CORPUSCULAR HGB CONC 33.2 g/dl (33.0-37.0); MEAN PLATELET VOLUME 9.6 fl (9.6-12.3); MONO # 0.7 10*3/uL (0.1-1.0); MONO % 8.5 % (3.0-9.0); NEUT # 4.7 10*3/uL (2.3-7.9); PLATELET COUNT AUTOMATED 292 10*3/uL (130-400); RED BLOOD COUNT 5.29 10*6/uL (4.50-5.90); RED CELL DISTRI WIDTH 12.9 % (0-14.5); WHITE BLOOD COUNT 8.2 10*3/uL (4.8-10.8)
[2023-11-08 19:57] LABS: BUN 7 mg/dl (9-23); CHLORIDE 106 mmol/L (98-107); POTASSIUM 4.6 mmol/L (3.4-5.1)
[2023-11-08 19:58] LABS: ETHYL ALCOHOL < 3.0 mg/dl (<3)
== END 2023-11-08 20:53 | disposition home or self-care (01) ==
LOC: ED 19:06
PROVIDERS: Internal Medicine
DX: R56.9 Unspecified convulsions (principal); I10 Essential (primary) hypertension; Z88.1 Allergy status to other antibiotic agents; Z88.8 Allergy status to other drugs, medicaments and biological substances

== ENCOUNTER 2023-11-20 13:48 | Emergency (ER) | payer OTHER ==
[~2023-11-20] VITALS: Ht 190.5 cm; Wt 100.7 kg
[2023-11-20] MEDS ORDERED: AMLODIPINE BESYL5 MG PO (14:05)
[2023-11-20] MEDS ORDERED: Acetaminophen/Oxycodone 5 MG/325 MG TABLET PO ONE (16:15)
== END 2023-11-20 16:43 | disposition home or self-care (01) ==
LOC: ED 13:48
DX: S76.912A Strain of unspecified muscles, fascia and tendons at thigh level, left thigh, initial encounter (principal); F41.9 Anxiety disorder, unspecified; I10 Essential (primary) hypertension; Z88.1 Allergy status to other antibiotic agents; Z88.8 Allergy status to other drugs, medicaments and biological substances; X58.XXXA Exposure to other specified factors, initial encounter; Y93.89 Activity, other specified; Y92.89 Other specified places as the place of occurrence of the external cause; Y99.8 Other external cause status

== ENCOUNTER 2023-11-22 13:34 | Emergency (ER) | payer OTHER ==
[~2023-11-22] VITALS: Ht 190.5 cm; Wt 100.7 kg
[~2023-11-22 13:34] MED LIST changes: +AMLODIPINE BESYL5 MG PO
[2023-11-22] MEDS ORDERED: DEXAMETHASONE 4 MG TAB PO ONE (14:45)
[2023-11-22] MEDS ORDERED: PREDNISONE50 MG PO (14:46)
== END 2023-11-22 15:12 | disposition home or self-care (01) ==
LOC: ED 13:34
DX: L25.9 Unspecified contact dermatitis, unspecified cause (principal); I10 Essential (primary) hypertension; Z88.1 Allergy status to other antibiotic agents; Z88.8 Allergy status to other drugs, medicaments and biological substances

== ENCOUNTER 2023-12-04 15:15 | Emergency (ER) | payer OTHER ==
[~2023-12-04] VITALS: Ht 190.5 cm; Wt 100.7 kg
[~2023-12-04 15:15] MED LIST changes: +PREDNISONE50 MG PO
[2023-12-04 15:57] LABS: BASO % 0.6 % (0.0-1.0); EOS # 0.6 10*3/uL (0.0-0.4); EOS % 8.8 % (1.0-4.0); HEMATOCRIT 47.1 % (42.0-52.0); LYMPH # 2.6 10*3/uL (1.3-4.4); LYMPH % 38.2 % (27.0-41.0); MEAN CELL VOLUME 90.2 fl (80.0-94.0); MEAN CORPUSCULAR HGB 29.3 pg (27.0-31.0); MEAN CORPUSCULAR HGB CONC 32.5 g/dl (33.0-37.0); MEAN PLATELET VOLUME 10.1 fl (9.6-12.3); MONO # 0.8 10*3/uL (0.1-1.0); MONO % 11.5 % (3.0-9.0); NEUT # 2.7 10*3/uL (2.3-7.9); NEUT % 40.3 % (47.0-73.0); PLATELET COUNT AUTOMATED 249 10*3/uL (130-400); RED BLOOD COUNT 5.22 10*6/uL (4.50-5.90); RED CELL DISTRI WIDTH 13.4 % (0-14.5); WHITE BLOOD COUNT 6.7 10*3/uL (4.8-10.8)
[2023-12-04 15:58] LABS: BILIRUBIN Negative (Negative); BLOOD Negative (Negative); CLARITY Clear (Clear); COLOR Yellow (Yellow); GLUCOSE Negative (Negative); KETONE 1+ (Negative); LEUKO ESTERASE Negative (Negative); NITRITE Negative (Negative)
[2023-12-04 16:20] LABS: MUCOUS 2+
[2023-12-04 16:37] LABS: BUN 16 mg/dl (9-23); CHLORIDE 110 mmol/L (98-107); POTASSIUM 4.6 mmol/L (3.4-5.1)
[2023-12-04] MEDS ORDERED: Doxycycline Hyclate 100 MG CAP PO ONE (16:45)
[2023-12-04] MEDS ORDERED: VIBRAMYCIN100 MG PO (16:45)
== END 2023-12-04 17:34 | disposition home or self-care (01) ==
LOC: ED 15:15
PROVIDERS: Nurse Practitioner Family
DX: A64 Unspecified sexually transmitted disease (principal); I10 Essential (primary) hypertension; Z88.1 Allergy status to other antibiotic agents; Z88.8 Allergy status to other drugs, medicaments and biological substances

== ENCOUNTER 2023-12-07 18:31 | Emergency (ER) | payer OTHER ==
[~2023-12-07] VITALS: Ht 190.5 cm; Wt 100.7 kg
[~2023-12-07 18:31] MED LIST changes: +VIBRAMYCIN100 MG PO
[2023-12-07 20:56] LABS: BASO # 0.1 10*3/uL (0.0-0.1); BASO % 0.7 % (0.0-1.0); EOS # 0.4 10*3/uL (0.0-0.4); EOS % 3.7 % (1.0-4.0); HEMATOCRIT 46.9 % (42.0-52.0); LYMPH # 2.4 10*3/uL (1.3-4.4); LYMPH % 25.9 % (27.0-41.0); MEAN CELL VOLUME 87.8 fl (80.0-94.0); MEAN CORPUSCULAR HGB 29.4 pg (27.0-31.0); MEAN CORPUSCULAR HGB CONC 33.5 g/dl (33.0-37.0); MEAN PLATELET VOLUME 10.1 fl (9.6-12.3); MONO # 0.8 10*3/uL (0.1-1.0); MONO % 8.6 % (3.0-9.0); NEUT # 5.7 10*3/uL (2.3-7.9); NEUT % 60.8 % (47.0-73.0); PLATELET COUNT AUTOMATED 219 10*3/uL (130-400); RED BLOOD COUNT 5.34 10*6/uL (4.50-5.90); RED CELL DISTRI WIDTH 13.2 % (0-14.5); WHITE BLOOD COUNT 9.4 10*3/uL (4.8-10.8)
[2023-12-07 21:11] LABS: BUN 12 mg/dl (9-23); CHLORIDE 109 mmol/L (98-107); POTASSIUM 4.8 mmol/L (3.4-5.1)
[2023-12-07 21:22] LABS: BILIRUBIN Negative (Negative); BLOOD Negative (Negative); CLARITY Clear (Clear); COLOR Yellow (Yellow); GLUCOSE Negative (Negative); KETONE Trace (Negative); LEUKO ESTERASE Negative (Negative); NITRITE Negative (Negative); PH 5.5 (4.5-8.0); SPECIFIC GRAVITY <= 1.005 (1.001-1.030); UROBILINOGEN 0.2 E.U./dl (0.0-1.0)
[2023-12-07 21:38] LABS: WBC 0-2 wbc/hpf (0-5)
== END 2023-12-08 00:20 | disposition home or self-care (01) ==
LOC: ED 18:31
PROVIDERS: Emergency Medicine
DX: R10.9 Unspecified abdominal pain (principal); I10 Essential (primary) hypertension; Z88.1 Allergy status to other antibiotic agents; Z88.8 Allergy status to other drugs, medicaments and biological substances

== ENCOUNTER → 2024-01-04 | Outpatient (CLI) | payer OTHER | END | disposition home or self-care (01) | LOC: LAB 11:17 | PROVIDERS: ATTEND Internal Medicine Nephrology | DX: R56.9 Unspecified convulsions (principal) ==

== ENCOUNTER → 2024-01-21 | Outpatient (CLI) | payer OTHER | END | disposition home or self-care (01) | LOC: MRI 00:58 | PROVIDERS: ATTEND Orthopaedic Surgery | DX: M77.12 Lateral epicondylitis, left elbow (principal) ==

== ENCOUNTER → 2024-02-18 | Day surgery (SDC) | payer OTHER ==
[2024-02-16 16:11] LABS: BUN 9 mg/dl (9-23); CHLORIDE 107 mmol/L (98-107)
[~2024-02-18] VITALS: Ht 190.5 cm; Wt 95.7 kg
[~2024-02-18] MED LIST changes: +ACETAMINOPHEN 100 ML IV ONE; +BUPIVACAINE 0.5% 10 ML VIAL ONE; +Bupivacaine Hydrochloride/Ep2 30 ML VIAL ONE; +DILANTIN100 MG PO; +Dexamethasone Sodium Phospha 4 MG/ML VIAL IV ONE; +LASIX20 MG PO; +Lactated Ringer's Solution 1,000 ML IV ONE; +Lactated Ringer's Solution 500 ML IV ONE; +Lidocaine Hydrochloride 30 ML VIAL ONE; +Lidocaine Hydrochloride 5 ML VIAL IV ONE; +Midazolam Hydrochloride 2 MG/2 ML VIAL IV ONE; +Ondansetron Hydrochloride 4 MG/2 ML VIAL IV ONE; +PROPOFOL 200 MG/20 ML VIAL IV ONE; +SEVOFLURANE 250 ML BOT INH ONE; +SODIUM CHLORIDE 0.9% 50 ML IV ONE; +ceFAZolin sodium/sodium chlor 20 ML IV ONE; +fentaNYL CITRATE 100 MCG/2 ML VIAL IV ONE
[2024-02-18 08:21] VITALS: BP 123/85
[2024-02-18 10:57] VITALS: BP 127/82
[2024-02-18 11:12] VITALS: BP 135/79
[2024-02-18 11:27] VITALS: BP 150/93
[2024-02-18 11:42] VITALS: BP 150/88
[2024-02-18 11:56] VITALS: BP 153/80
== END | disposition home or self-care (01) ==
LOC: SDC 02-15 08:45
PROVIDERS: ATTEND Orthopaedic Surgery
DX: M77.12 Lateral epicondylitis, left elbow (principal); I10 Essential (primary) hypertension; F41.9 Anxiety disorder, unspecified; K21.9 Gastro-esophageal reflux disease without esophagitis; G89.29 Other chronic pain; Z87.891 Personal history of nicotine dependence; Z98.890 Other specified postprocedural states; Z79.899 Other long term (current) drug therapy

== ENCOUNTER 2024-02-27 17:53 | Emergency (ER) | payer OTHER ==
[~2024-02-27] VITALS: Ht 190.5 cm; Wt 99.2 kg
[~2024-02-27 17:53] MED LIST changes: -ACETAMINOPHEN 100 ML IV ONE; -BUPIVACAINE 0.5% 10 ML VIAL ONE; -Bupivacaine Hydrochloride/Ep2 30 ML VIAL ONE; -Dexamethasone Sodium Phospha 4 MG/ML VIAL IV ONE; -LASIX20 MG PO; -Lactated Ringer's Solution 1,000 ML IV ONE; -Lactated Ringer's Solution 500 ML IV ONE; -Lidocaine Hydrochloride 30 ML VIAL ONE; -Lidocaine Hydrochloride 5 ML VIAL IV ONE; -Midazolam Hydrochloride 2 MG/2 ML VIAL IV ONE; -Ondansetron Hydrochloride 4 MG/2 ML VIAL IV ONE; -PROPOFOL 200 MG/20 ML VIAL IV ONE; -SEVOFLURANE 250 ML BOT INH ONE; -SODIUM CHLORIDE 0.9% 50 ML IV ONE; -ceFAZolin sodium/sodium chlor 20 ML IV ONE; -fentaNYL CITRATE 100 MCG/2 ML VIAL IV ONE
[2024-02-27] MEDS ORDERED: IBU800 M2 PO (18:46)
[2024-02-27] MEDS ORDERED: LASIX20 MG PO (18:46)
== END 2024-02-27 18:54 | disposition home or self-care (01) ==
LOC: ED 17:53
DX: M79.89 Other specified soft tissue disorders (principal); I10 Essential (primary) hypertension; Z88.1 Allergy status to other antibiotic agents; Z88.8 Allergy status to other drugs, medicaments and biological substances; Z98.890 Other specified postprocedural states

== ENCOUNTER 2024-05-09 12:58 | Emergency (ER) | payer OTHER ==
[~2024-05-09] VITALS: Ht 190.5 cm; Wt 100.4 kg
[~2024-05-09 12:58] MED LIST changes: +LASIX20 MG PO
[2024-05-09 13:29] LABS: BASO # 0.1 10*3/uL (0.0-0.1); BASO % 0.6 % (0.0-1.0); EOS # 0.2 10*3/uL (0.0-0.4); EOS % 1.4 % (1.0-4.0); HEMATOCRIT 46.2 % (42.0-52.0); MEAN CELL VOLUME 86.2 fl (80.0-94.0); MEAN CORPUSCULAR HGB 29.7 pg (27.0-31.0); MEAN CORPUSCULAR HGB CONC 34.4 g/dl (33.0-37.0); MEAN PLATELET VOLUME 9.6 fl (9.6-12.3); MONO # 0.8 10*3/uL (0.1-1.0); MONO % 7.3 % (3.0-9.0); NEUT # 8.1 10*3/uL (2.3-7.9); NEUT % 74.4 % (47.0-73.0); PLATELET COUNT AUTOMATED 261 10*3/uL (130-400); RED BLOOD COUNT 5.36 10*6/uL (4.50-5.90); RED CELL DISTRI WIDTH 12.2 % (0-14.5); WHITE BLOOD COUNT 10.9 10*3/uL (4.8-10.8)
[2024-05-09 13:50] LABS: BUN 14 mg/dl (9-23); CHLORIDE 108 mmol/L (98-107); POTASSIUM 3.8 mmol/L (3.4-5.1)
[2024-05-09 13:55] LABS: BILIRUBIN Negative (Negative); BLOOD Negative (Negative); CLARITY Clear (Clear); COLOR Orange (Yellow); GLUCOSE Negative (Negative); KETONE Trace (Negative); LEUKO ESTERASE Negative (Negative); NITRITE Negative (Negative)
[2024-05-09 14:17] LABS: MUCOUS TRACE; RBC 0-2 rbc/hpf (0-2)
[2024-05-09] MEDS ORDERED: ACETAMINOPHEN 325 MG TAB PO ONE (15:10)
== END 2024-05-09 15:20 | disposition home or self-care (01) ==
LOC: ED 12:58
PROVIDERS: Internal Medicine
DX: R10.9 Unspecified abdominal pain (principal); M25.522 Pain in left elbow; I10 Essential (primary) hypertension; F17.200 Nicotine dependence, unspecified, uncomplicated; Z88.1 Allergy status to other antibiotic agents; Z88.8 Allergy status to other drugs, medicaments and biological substances; Z98.890 Other specified postprocedural states

== ENCOUNTER 2024-07-12 15:58 | Emergency (ER) | payer OTHER ==
[2024-07-12] MEDS ORDERED: KENALOG 0.1%80 GM T ×2 (16:27→16:45)
[2024-07-12] MEDS ORDERED: PREDNISONE20 M1 PO (16:27)
[2024-07-12] MEDS ORDERED: methylPREDNISolone sod succ 125 MG VIAL IM ONE (16:30)
[2024-07-12] MEDS ORDERED: Water, Sterile 10 ML VIAL ONE (16:56)
== END 2024-07-12 16:49 | disposition home or self-care (01) ==
LOC: ED 15:58
DX: L20.9 Atopic dermatitis, unspecified (principal); I10 Essential (primary) hypertension; F41.9 Anxiety disorder, unspecified; Z79.899 Other long term (current) drug therapy; Z88.1 Allergy status to other antibiotic agents; Z88.5 Allergy status to narcotic agent; Z88.8 Allergy status to other drugs, medicaments and biological substances; Z98.890 Other specified postprocedural states

== ENCOUNTER 2024-07-30 13:35 | Emergency (ER) | payer OTHER ==
[~2024-07-30] VITALS: Ht 190.5 cm; Wt 96.2 kg
[~2024-07-30 13:35] MED LIST changes: +KENALOG 0.1%80 GM T
[2024-07-30] MEDS ORDERED: Ketorolac Tromethamine 30 MG/ML VIAL IM ONE (14:00)
[2024-07-30] MEDS ORDERED: LORazepam 1 MG TAB PO ONE (14:00)
[2024-07-30] MEDS ORDERED: METHOCARBAMOL500 M1 PO (14:29)
[2024-07-30] MEDS ORDERED: TRAZODONE100 MG PO (14:32)
[2024-07-30] MEDS ORDERED: RELIEF TD (14:32)
== END 2024-07-30 14:57 | disposition home or self-care (01) ==
LOC: ED 13:35
DX: M54.50 Low back pain, unspecified (principal); F41.9 Anxiety disorder, unspecified; G47.00 Insomnia, unspecified; L30.9 Dermatitis, unspecified; N50.811 Right testicular pain; N50.812 Left testicular pain; F32.A Depression, unspecified; L85.3 Xerosis cutis; Z88.8 Allergy status to other drugs, medicaments and biological substances; Z88.1 Allergy status to other antibiotic agents; Z79.899 Other long term (current) drug therapy; Z87.442 Personal history of urinary calculi

== ENCOUNTER 2024-08-31 07:50 | Emergency (ER) | payer OTHER ==
[~2024-08-31] VITALS: Wt 93.4 kg
[~2024-08-31 07:50] MED LIST changes: +RELIEF TD; +TRAZODONE100 MG PO
[2024-08-31] MEDS ORDERED: Dexamethasone Sodium Phospha 20 MG/5 ML VIAL IM ONE (08:45)
[2024-08-31] MEDS ORDERED: CYCLOBENZAPRINE5 M3 PO (09:47)
[2024-08-31] MEDS ORDERED: [UNRECOGNIZED DRUG - OTHER] T (09:57)
== END 2024-08-31 10:14 | disposition home or self-care (01) ==
LOC: ED 07:50
DX: M62.830 Muscle spasm of back (principal); M54.50 Low back pain, unspecified; Z88.8 Allergy status to other drugs, medicaments and biological substances; Z88.1 Allergy status to other antibiotic agents; Z79.899 Other long term (current) drug therapy; Z87.442 Personal history of urinary calculi

== ENCOUNTER → 2024-10-18 | Outpatient (CLI) | payer OTHER ==
[~2024-10-18] MED LIST changes: +ENALAPRILAT 2.5 MG/2 ML VIAL IV SCH; +FUROSEMIDE 40 MG/4 ML VIAL IV SCH; +FUROSEMIDE 40 MG/4 ML VIAL ONE; +[UNRECOGNIZED DRUG - OTHER] IV SCH; +[UNRECOGNIZED DRUG - OTHER] T
== END ==
LOC: NM 09:23
PROVIDERS: ATTEND Urology
DX: N13.30 Unspecified hydronephrosis (principal)